=== PATIENT | male | born 1980 | race Two or more races ===

== ENCOUNTER 2024-09-23 23:06 | Emergency (ER) | payer SELFPAY ==
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
[2024-09-23 23:08] VITALS: PULSE 116; RESP 26; O2SAT 97; BMI 22.1
[2024-09-23 23:12] VITALS: BP 166/109; PULSE 127; RESP 26; TEMP 36.4; O2SAT 100
--- NOTE | 2024-09-23 23:14 | XR_ITS ---
Examination: CT brain head without contrast. 2-D sagittal coronal reconstructions Date and time of exam:September 24, 2024 0305 hrs. Indications: Seizure today with injury to head, head pain CTDI: vol (mGy):54.1 DLP: (mGycm):1137 Technique: Multiple CT axial sections of the brain have been obtained, 5 mm slice thickness. Contrast has not been administered. 2-D sagittal, coronal reconstructions have been obtained Low dose protocols were performed. One or more of the following dose reduction techniques were used; automated exposure control, adjustment of the mA and/or KV according to patient size, use of iterative reconstruction technique. Findings: No significant ventricular enlargement. Intra-axial or extra-axial hemorrhage density is not seen. No mass effect or midline shift Basal cisterns are not remarkable. Fourth ventricle is midline. Cranial vault intact. Impression: Negative for acute hemorrhage, mass effect or midline shift
--- NOTE | 2024-09-23 23:14 | XR_ITS ---
Examination: CT lumbar spine, without contrast. 2-D sagittal reconstructions. 2-D coronal reconstructions. 3-D reconstructions. Date and time of exam:September 24, 2024 0315 hrs. Indications: Seizure today with injury to lower back, lower back pain CTDI: vol (mGy):29.3 DLP: (mGycm):930 Technique: Multiple 1.25 mm axial sections of the lumbar spine without intravenous contrast have been obtained. 2-D sagittal and coronal reconstructions have been obtained. 3-D reconstructions have been obtained. Low dose protocols were performed. One or more of the following dose reduction techniques were used; automated exposure control, adjustment of the mA and/or KV according to patient size, use of iterative reconstruction technique. Findings: Satisfactory alignment lumbar vertebral bodies No lumbar vertebral body fracture Lumbar pedicles, laminae, transverse and posterior spinous processes intact 7 mm sclerotic focus in the left first sacral segment No focal lumbar disc protrusion Impression: No acute lumbar fracture
--- NOTE | 2024-09-23 23:14 | XR_ITS ---
Examination: CT chest, without intravenous contrast. CT abdomen, without intravenous contrast. CT pelvis, without intravenous contrast. 2-D sagittal and coronal reconstructions. 3-D reconstructions. Date and time of exam:September 24, 2024 0313 hrs. Indications: Seizure today with injury to the chest and abdomen, chest pain abdomen pain CTDI vol (mgy) 8.66 DLP (MGycm)680 Technique: Multiple CT images, 3.0 mm slice thickness, obtained chest, abdomen, pelvis, with the high-resolution 64 slice scanner.. Sagittal and coronal 2-D reconstructions are obtained. 3-D reconstructions Low dose protocols were performed. One or more of the following dose reduction techniques were used; automated exposure control, adjustment of the mA and/or KV according to patient size, use of iterative reconstruction technique. Findings: Lack of intravenous contrast significantly limits assessment for chest abdomen pelvis trauma Thoracic aorta pulmonary arteries intact No hemopericardium, pneumothorax pulmonary contusion or hemothorax No liver splenic or renal laceration Abdominal aorta intact No free blood in the abdomen or pelvis Normal appendix Osseous structures appear intact Impression: No visceral or bony injury to the chest abdomen or pelvis on this limited noncontrast study
--- NOTE | 2024-09-23 23:14 | XR_ITS ---
Examination: CT thoracic spine without contrast. 2-D sagittal reconstructions. 2-D coronal reconstructions. 3-D reconstructions. Date and time of exam: September 24, 2024 at 0316 hrs. Indications: Seizure today with injury to the back, mid back pain CTDI: vol (mGy):31.4 DLP: (mGycm):1057 Technique: Multiple 1.25 mm axial sections of the thoracic spine without intravenous contrast have been obtained. 2-D sagittal and coronal reconstructions have been obtained. 3-D reconstructions have been obtained. Low dose protocols were performed. One or more of the following dose reduction techniques were used; automated exposure control, adjustment of the mA and/or KV according to patient size, use of iterative reconstruction technique. Findings: Satisfactory alignment thoracic vertebral bodies on the lateral view No thoracic vertebral body compression fracture Thoracic pedicles, laminae, transverse and posterior spinous processes intact No focal thoracic disc protrusions Impression: No acute thoracic fracture
--- NOTE | 2024-09-23 23:14 | XR_ITS ---
Examination: CT cervical spine without contrast 2-D sagittal reconstructions 2-D coronal reconstructions 3-D reconstructions. Exam date and time:September 24, 2024 0305 hrs. Indications: Seizure today, with injury to the neck, neck pain CTDI:vol (mGy) 14 DLP: (mGycm) 318 Technique: Multiple 2 mm axial sections of the cervical spine have been obtained. The coronal and sagittal reconstructions have been obtained. 3-D reconstructions have been obtained. Low dose protocols were performed. One or more of the following dose reduction techniques were used; automated exposure control, adjustment of the mA and/or KV according to patient size, use of iterative reconstruction technique. Findings: Axial sections demonstrate intact base of the skull. C1 exhibit satisfactory relationship to the odontoid. No acute cervical vertebral body fracture seen. Alignment posterior spinous processes satisfactory. Impression: No acute cervical fracture.
--- NOTE | 2024-09-23 23:14 | XR_ITS ---
Examination: CT maxillofacial, without intravenous contrast. 2-D sagittal reconstructions. 3-D reconstructions. Date and time of exam:September 24, 2024 0305 hrs. Indications: Seizure today with injury to the face, facial pain CTDI: vol (mGy):29.4 DLP: (mGycm):565 Technique: Multiple axial images of maxillofacial region, 3.0 mm slice thickness. 2-D sagittal and coronal reconstructions. 3-D reconstructions. Low dose protocols were performed. One or more of the following dose reduction techniques were used; automated exposure control, adjustment of the mA and/or KV according to patient size, use of iterative reconstruction technique. Findings: Mandible maxilla intact including pterygoid plates Old appearing left nasal bone fracture but clinical correlation advised No depression zygomatic arches Orbital rims are intact Frontal bone intact Impression: No acute facial fracture.
[2024-09-23 23:31] LABS: Collection Type, Urine Clean Catch
[2024-09-23 23:36] LABS: Basophils # (Auto) 0.1 Thou/mm3 (0.0-0.2); Basophils % (Auto) 0 % (0-2.5); Eosinophils # (Auto) 0.4 Thou/mm3 (0.0-0.5); Eosinophils % (Auto) 4 % (0-10); Hematocrit 41.5 % (41.0-53.0); Hemoglobin 14.4 g/dL (13.5-16.0); Immature Granulocytes % (Auto) 0 % (0-0); Immature Granulocytes Auto 0.03 Thou/mm3 (0.00-0.00); Lymphocytes # (Auto) 2.7 Thou/mm3 (1.0-4.8); Lymphocytes % (Auto) 23 % (10-50); Mean Corpuscular HGB Conc 34.7 g/dl (31.0-37.0); Mean Corpuscular Hemoglobin 29.1 pg (25.0-35.0); Mean Corpuscular Volume 84 fL (80-100); Monocytes # (Auto) 0.8 Thou/mm3 (0.0-0.8); Monocytes % (Auto) 7 % (0-12); Neutrophils # (Auto) 7.6 Thou/mm3 (1.8-7.7); Neutrophils % (Auto) 66 % (37-80); Nucleated Red Blood Cell % 0 /100 WBC (0); Platelet Count 352 Thou/mm3 (140-440); RDW Standard Deviation 41.1 fL (35.1-43.9); Red Blood Count 4.95 Miln/mm3 (4.50-5.90); White Blood Count 11.5 Thou/mm3 (3.8-10.6)
[2024-09-23] MEDS: SODIUM CHLORIDE 0.9% 1000 ML 1,000 ML 999 ML IV (23:43)
[2024-09-23] MEDS: ONDANSETRON INJ 2 MG/ML INJ 2 ML 4 MG IV (23:47)
[2024-09-23] MEDS: LORazepam 2 MG/ML VIAL IVP (23:47)
[2024-09-23] MEDS: levETIRAcetam INJ 100 MG/ML VIAL 5ML 2000 MG IVP (23:47)
[2024-09-23] MEDS: DIPHTH,PERTUSS(ACELL),TET VAC 0.5 ML SYR- ADULT IMi (23:48)
[2024-09-23 23:51] LABS: Bilirubin,Urine Negative (Negative); Blood,Urine Negative (Negative); Calcium Oxalate Crystals,Urine 1+; Clarity,Urine Clear (Clear/Hazy); Color,Urine Yellow (Lt Yel-Yel); Culture Indicated,Urine Not Indicated; Glucose, Urine Negative (Negative); Ketones,Urine Trace (Negative); Leukocyte Esterase,Urine Negative (Negative); Nitrite,Urine Negative (Negative); PH,Urine 5.5 (5.0-7.0); Protein,Urine 1+ (Neg - Trace); RBC,Urine 5 /hpf (0-3); Squamous Epithelial Cell,Urine < 1 /hpf (0-5); WBC,Urine 4 /hpf (0-5)
[2024-09-23 23:52] LABS: Sperm,Urine Present
[2024-09-23 23:56] LABS: Partial Thromboplastin Time 23.6 Seconds (22.0-36.0); Prothrombin Time 10.8 Seconds (9.0-12.2)
[2024-09-24] VITALS (7 sets, daily range): BP systolic 119–140; BP diastolic 65–81; PULSE 73–104; RESP 16–18; TEMP 36.2–36.7; O2SAT 96–100
[2024-09-24 00:06] LABS: Alanine Aminotransferase 19 U/L (10-49); Albumin, Serum 4.6 gm/dL (3.5-5.0); Albumin/Globulin Ratio 1.7 (1.2-2.2); Alcohol, Blood Medical < 3.0 mg/dL (0-10.0); Alkaline Phosphatase 96 U/L (46-116); Anion Gap 13 (7-16); Aspartate Amino Transferase 30 U/L (0-34); BUN/Creatinine Ratio 24 Ratio (12-20); Bilirubin,Total 0.3 mg/dL (0.3-1.2); Blood Urea Nitrogen 24 mg/dL (9-23); Calcium 9.5 mg/dL (8.3-10.6); Calcium (Corrected) 9.5 mg/dL (8.5-10.1); Carbon Dioxide 23.2 mMol/L (20.0-31.0); Chloride 106 mMol/L (98-107); Creatine Kinase 319 U/L (34-171); Estimated Creatinine Clearance 90.7 mL/min (>60); Globulin 2.7 gm/dL (2.3-3.5); Glucose 129 mg/dL (74-106); Magnesium 1.9 mg/dL (1.6-2.6); Osmolality,Calculated 289 (275-295); Potassium 4.4 mMol/L (3.4-5.1); Sodium 142 mMol/L (136-145); Total Protein 7.3 gm/dL (5.7-8.2); Troponin I < 0.002 ng/mL (0.0-0.045); eGFR > 60 See Note
[2024-09-24 00:07] LABS: Amphetamine/Methamp Scrn,U Positive (Negative); Barbiturate Screen,Urine Negative (Negative); Benzodiazepines Screen,Urine Positive (Negative); Benzoylecgonine Screen, Ur Negative (Negative); Fentanyl Screen,Urine Negative (Negative); Opiate Screen,Urine Negative (Negative); THC Screen,Urine Positive (Negative)
[2024-09-24 00:21] LABS: Base Excess 1 (-3-3); HCO3 23 mEq/L (20-26); Inspired Oxygen, FIO2 21 %; O2 Saturation 96 % (91-98); PCO2 31 mmHg (32.0-48.0); PO2 87 mmHg (83-108); pH, Arterial 7.48 (7.35-7.45)
[2024-09-24 00:22] LABS: Allen Test Performed/OK; Puncture Site Right Radial
[2024-09-24] MEDS: ceFAZolin/D5W 2 GM IV 2 GM/100 ML BAG IV (00:30)
--- NOTE | 2024-09-24 00:32 | XR_ITS ---
Examination: Humerus 2 views right Technique: Humerus, AP lateral 2 views Date and time of exam: September 24, 2024 0103 hrs. Indications: Patient fell today with injury to the arm, arm pain Findings: No shoulder fracture or dislocation Shaft of the humerus intact Impression: No acute fracture
--- NOTE | 2024-09-24 00:32 | XR_ITS ---
Examination: Hand, right 2 views Technique: Hand AP, lateral 2 views Date and time of exam: September 24, 2024 0103 hrs. Indications: Injured the hand today, hand pain Findings: No acute fracture. No dislocation Impression: No acute fracture
--- NOTE | 2024-09-24 00:32 | XR_ITS ---
Examination: Forearm, right, 2 views. Technique: Forearm, AP, lateral 2 views Date and time of exam: September 24, 2024 0103 hrs. Indications: Injury to the forearm today, forearm pain. Findings: No acute fracture No dislocation No foreign body Impression: No acute fracture
--- NOTE | 2024-09-24 00:42 | PC.CC ---
Magui SUAZO arranged transportation for CT with [facility] for 1400.
[2024-09-24] MEDS: KETOROLAC INJ 30 MG/ML VIAL IVP (03:45)
[2024-09-24] MEDS: SODIUM CHLORIDE 0.9% 1000 ML 1,000 ML 999 ML IV (03:46)
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
--- NOTE | 2024-09-24 04:56 | PRELIM_ITS ---
CT maxillofacial without intravenous contrast (axial sections with sagittal and coronal reformats). September 24, 2024 0305 hours Clinical History: Trauma Radiation Dose: Total exam DLP 2030 mGy/cm Comparison: No prior study is available for comparison. Findings: There is no acute fracture. The maxillary sinus and orbital cormier are intact. No fluid levels are seen. No evidence of intraorbital hematoma, proptosis, globe injury or radiodense foreign body. The zygomatic arches and mandible are intact. The visualized soft tissues are unremarkable.There is an age indeterminate bilateral nasal bone fracture. Impression: No acute maxillofacial fracture. Report Electronically Signed By: Scott Mckinley 09/24/2024 4:56:37 AM [EST]
--- NOTE | 2024-09-24 05:00 | PRELIM_ITS ---
CT scan of the head without intravenous contrast (axial sections with sagittal and coronal reformats). September 24, 2024 0305 hours Clinical History: Seizure Comparison: No prior study is available for comparison. Findings: No evidence of intracranial hemorrhage, mass effect or midline shift. The ventricles and CSF spaces are unremarkable. The calvarium is unremarkable. The mastoid air cells and the visualized paranasal sinuses are clear. Impression: No evidence of intracranial hemorrhage, mass effect or midline shift. Report Electronically Signed By: Scott Mckinley 09/24/2024 5:00:14 AM [EST]
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
--- NOTE | 2024-09-24 05:10 | PRELIM_ITS ---
CT scan of the chest, abdomen and pelvis without intravenous contrast (axial sections with sagittal and coronal reformats) September 24, 2024 0313 hours Clinical History: Fall Radiation Dose: Total exam DLP 681 mGy/cm Comparison: No prior study is available for comparison. Findings: The evaluation is slightly limited due to motion artifact. Bibasilar dependent atelectasis is present. There is no pleural effusion or pneumothorax. The aorta is unremarkable on this noncontrast study. There is no mediastinal collection. There is no pericardial effusion. The liver, gallbladder, spleen, pancreas, adrenals and kidneys are unremarkable on this noncontrast study. The bowel is unremarkable. A moderate amount of fecal material is present in the colon. The urinary bladder is unremarkable. There is no free fluid or free air. No fracture is identified.chronic deformity of superior pubic ramus left Impression: No visceral or bony injury to the chest, abdomen or pelvis. Report Electronically Signed By: Scott Mckinley 09/24/2024 5:09:48 AM [EST]
--- NOTE | 2024-09-24 05:10 | PRELIM_ITS ---
CT scan of the lumbar spine without intravenous contrast (axial sections with sagittal and coronal reformats) September 24, 2024 0316 hours Clinical History: Trauma Radiation Dose: Total exam DLP 1893 mGy/cm Comparison: No prior study is available for comparison. Findings: There is no acute fracture or traumatic subluxation. The vertebral body height and intervertebral disc spaces are normal. The soft tissues are unremarkable. Impression: No evidence of acute fracture, traumatic subluxation or significant soft tissue injury. Report Electronically Signed By: Scott Mckinley 09/24/2024 5:09:53 AM [EST]
--- NOTE | 2024-09-24 06:01 | EDNOTE_ITS ---
Emergency Room Addendum Addendum Narrative: 0600: Care assumed from Dr. Sahu, the previous shift emergency physician. Past medical, surgical, social and family history reviewed. Vitals and home medications reviewed. I will assume the care of the patient at this time, pending on x-ray reports and final disposition. Please refer to the emergency department record for history and examination from initial visit.? Physical exam by me shows patient under no acute distress at this time. 0925: Patient remains clinically stable throughout the emergency department visit. Re-assessment at the time of disposition demonstrates that the patient is in no acute distress. We reviewed all the results, analysis, and treatment plans. Patient is amenable to discharge. Strict return precautions were outlined. Patient was discharged in stable condition. Diagnoses: -Trauma -Multiple abrasions -Witnessed seizure-like activity -Methamphetamine abuse RADIOLOGY Procedure(s): XR humerus RT min 2V Accession Number(s): [id number] cc: Akhil Sahu MD; Cory Batres MD; NO PRIMARY/FAMILY,PHYSICIAN~ Examination: Humerus 2 views right Technique: Humerus, AP lateral 2 views Date and time of exam: September 24, 2024 0103 hrs. Indications: Patient fell today with injury to the arm, arm pain Findings: No shoulder fracture or dislocation Shaft of the humerus intact Impression: No acute fracture Dictated By: Cory Batres MD Procedure(s): XR hand RT 2V Accession Number(s): [id number] cc: Akhil Sahu MD; Cory Batres MD; NO PRIMARY/FAMILY,PHYSICIAN~ Examination: Hand, right 2 views Technique: Hand AP, lateral 2 views Date and time of exam: September 24, 2024 0103 hrs. Indications: Injured the hand today, hand pain Findings: No acute fracture. No dislocation Impression: No acute fracture Dictated By: Cory Batres MD Procedure(s): XR forearm RT 2V Accession Number(s): [id number] cc: Akhil Sahu MD; Cory Batres MD; NO PRIMARY/FAMILY,PHYSICIAN~ Examination: Forearm, right, 2 views. Technique: Forearm, AP, lateral 2 views Date and time of exam: September 24, 2024 0103 hrs. Indications: Injury to the forearm today, forearm pain. Findings: No acute fracture No dislocation No foreign body Impression: No acute fracture Dictated By: Cory Batres MD
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
--- NOTE | 2024-09-24 09:31 | PC.NURSE ---
Patient able to eat a sandwich, water and juice without difficulty. Ok to give results to patient per Ai Church, patient made aware of all lab and xray results.
== END 2024-09-24 11:02 | disposition home or self-care (01) ==
PROVIDERS: Emergency Medicine; Emergency Provider Emergency Medicine
DX: R56.9 Unspecified convulsions (principal); F15.10 Other stimulant abuse, uncomplicated; M79.631 Pain in right forearm; S00.81XA Abrasion of other part of head, initial encounter; X58.XXXA Exposure to other specified factors, initial encounter; R07.9 Chest pain, unspecified; M54.9 Dorsalgia, unspecified; Z23 Encounter for immunization
CPT/HCPCS: 51701; 36415; 36600; 70450; 70486; 71250; 72125; 72128; 72131; 73060; 73090; 73120; 74176; 80053; 80307; 80320; 81001; 82550; 82803; 83735; 84484; 85025; 85610; 85730; 90471; 90715; 93005; 96361; 96365; 96375; 99284; J0689; J1885; J1953; J2060; J2405; J7030; G0480

== ENCOUNTER 2024-11-08 09:57 | Emergency (ER) | payer SELFPAY ==
[2024-11-08 09:18] VITALS: PULSE 96; RESP 16; O2SAT 99
[2024-11-08 09:25] VITALS: BMI 21.2
[2024-11-08 09:29] VITALS: BP 126/80; PULSE 95; RESP 22; TEMP 37; O2SAT 95
--- NOTE | 2024-11-08 09:30 | XR_ITS ---
Examination: CT cervical spine without contrast 2-D sagittal reconstructions 2-D coronal reconstructions 3-D reconstructions. Exam date and time:November 08, 2024 1007 hours Seizures today, altered mental status, neck pain CTDI:vol (mGy) 9.27 DLP: (mGycm) 222 Technique: Multiple 2 mm axial sections of the cervical spine have been obtained. The coronal and sagittal reconstructions have been obtained. 3-D reconstructions have been obtained. Low dose protocols were performed. One or more of the following dose reduction techniques were used; automated exposure control, adjustment of the mA and/or KV according to patient size, use of iterative reconstruction technique. Findings: Axial sections demonstrate intact base of the skull. C1 exhibit satisfactory relationship to the odontoid. No acute cervical vertebral body fracture seen. Alignment posterior spinous processes satisfactory. Impression: No acute cervical fracture.
[2024-11-08 09:31] VITALS: PULSE 92
--- NOTE | 2024-11-08 09:31 | EKG_ITS ---
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
[2024-11-08] MEDS: levETIRAcetam INJ 100 MG/ML VIAL 5ML 1000 MG IVP (09:40)
[2024-11-08] MEDS: SODIUM CHLORIDE 0.9% 1000 ML 1,000 ML IV (09:40)
[2024-11-08] MEDS: LORazepam 2 MG/ML VIAL 1 MG IVP (09:45)
[2024-11-08 09:47] LABS: Collection Type, Urine Clean Catch; Squamous Epithelial Cell,Urine 0 /hpf (0-5)
[2024-11-08 09:49] LABS: Basophils % (Auto) 0 % (0-2.5); Eosinophils # (Auto) 0.2 Thou/mm3 (0.0-0.5); Eosinophils % (Auto) 2 % (0-10); Hemoglobin 13.2 g/dL (13.5-16.0); Immature Granulocytes % (Auto) 0 % (0-0); Immature Granulocytes Auto 0.03 Thou/mm3 (0.00-0.00); Lymphocytes # (Auto) 2.2 Thou/mm3 (1.0-4.8); Lymphocytes % (Auto) 21 % (10-50); Mean Corpuscular HGB Conc 35.7 g/dl (31.0-37.0); Mean Corpuscular Hemoglobin 29.3 pg (25.0-35.0); Mean Corpuscular Volume 82 fL (80-100); Monocytes # (Auto) 0.7 Thou/mm3 (0.0-0.8); Monocytes % (Auto) 6 % (0-12); Neutrophils # (Auto) 7.4 Thou/mm3 (1.8-7.7); Neutrophils % (Auto) 70 % (37-80); Nucleated Red Blood Cell % 0 /100 WBC (0); Platelet Count 268 Thou/mm3 (140-440); RDW Standard Deviation 38.6 fL (35.1-43.9); White Blood Count 10.6 Thou/mm3 (3.8-10.6)
[2024-11-08 09:55] LABS: Bilirubin,Urine Negative (Negative); Blood,Urine Negative (Negative); Clarity,Urine Clear (Clear/Hazy); Color,Urine Yellow (Lt Yel-Yel); Glucose, Urine Negative (Negative); Ketones,Urine Negative (Negative); Leukocyte Esterase,Urine Negative (Negative); Nitrite,Urine Negative (Negative); PH,Urine 5.5 (5.0-7.0); Protein,Urine Trace (Neg - Trace); RBC,Urine 3 /hpf (0-3); Specific Gravity,Urine 1.035 (1.001-1.035); Urobilinogen,Urine Negative mg/dL (0.0-1.0); WBC,Urine 2 /hpf (0-5)
[2024-11-08 09:57] LABS: Inspired Oxygen, FIO2 21 %
[2024-11-08 09:58] LABS: Base Excess -1 (-3-3); HCO3 24 mEq/L (20-26); O2 Saturation 97 % (91-98); PCO2 42 mmHg (32.0-48.0); PO2 116 mmHg (83-108); pH, Arterial 7.37 (7.35-7.45)
[2024-11-08 09:59] LABS: Allen Test Not Performed; Puncture Site Right Radial
[2024-11-08 10:00] LABS: Amphetamine/Methamp Scrn,U Positive (Negative); Barbiturate Screen,Urine Negative (Negative); Benzodiazepines Screen,Urine Negative (Negative); Benzoylecgonine Screen, Ur Negative (Negative); Fentanyl Screen,Urine Negative (Negative); Opiate Screen,Urine Negative (Negative); THC Screen,Urine Positive (Negative)
[2024-11-08 10:06] LABS: Prothrombin Time 11.4 Seconds (9.0-12.2)
[2024-11-08 10:09] LABS: Acetaminophen < 2.0 mcg/mL (10.0-20.0); Alanine Aminotransferase 16 U/L (10-49); Albumin/Globulin Ratio 1.7 (1.2-2.2); Alcohol, Blood Medical < 3.0 mg/dL (0-10.0); Alkaline Phosphatase 79 U/L (46-116); Anion Gap 11 (7-16); Aspartate Amino Transferase 20 U/L (0-34); BUN/Creatinine Ratio 19 Ratio (12-20); Bilirubin,Total 0.4 mg/dL (0.3-1.2); Blood Urea Nitrogen 17 mg/dL (9-23); Calcium 8.3 mg/dL (8.3-10.6); Calcium (Corrected) 8.3 mg/dL (8.5-10.1); Carbon Dioxide 23.7 mMol/L (20.0-31.0); Chloride 107 mMol/L (98-107); Creatinine (Component) 0.9 mg/dL (0.6-1.3); Estimated Creatinine Clearance 94.1 mL/min (>60); Globulin 2.4 gm/dL (2.3-3.5); Glucose 167 mg/dL (74-106); Magnesium 1.7 mg/dL (1.6-2.6); Osmolality,Calculated 288 (275-295); Potassium 3.4 mMol/L (3.4-5.1); Salicylate < 3.0 mg/dL; Sodium 142 mMol/L (136-145); Total Protein 6.4 gm/dL (5.7-8.2); Troponin I < 0.002 ng/mL (0.0-0.045); eGFR > 60 See Note
[2024-11-08 12:06] VITALS: BP 113/69; PULSE 81; RESP 19; TEMP 36.6; O2SAT 96
[2024-11-08 14:18] VITALS: BP 116/66; PULSE 81; RESP 20; TEMP 36.7; O2SAT 95
== END 2024-11-08 16:03 | disposition home or self-care (01) ==
PROVIDERS: Emergency Provider Family Medicine
DX: F15.10 Other stimulant abuse, uncomplicated (principal); R41.82 Altered mental status, unspecified; R94.31 Abnormal electrocardiogram [ECG] [EKG]; M54.2 Cervicalgia; R56.9 Unspecified convulsions
CPT/HCPCS: 36415; 36600; 70450; 72125; 80053; 80307; 80320; 80329; 81001; 82803; 83735; 84484; 85025; 85610; 85730; 87040; 93005; 96361; 96365; 96374; 99284; J1953; J2060; J7030; G0480

== ENCOUNTER 2024-11-11 14:35 | Emergency (ER) | payer SELFPAY ==
[2024-11-11 14:35] VITALS: BMI 20.7
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
--- NOTE | 2024-11-11 14:59 | PD.EDADULT ---
ED General RME/HPI General Chief complaint: Medical Clearance Stated complaint: MEDICAL CLEARANCE Time Seen by Provider: 11/11/24 15:21 Arrival date/time: 11/11/24 14:35 Limitations: no limitations RME / HPI RME / HPI narrative: DR. RIZO MAIN ED EVALUATION: 43 year old male presents to the Emergency Department brought in by police as a medical clearance for feeling anxious for a month; he told the police he was getting an aura of a seizure. Patient also complaints of a small thing on his butt, it is a buttocks small healing abscess that has some scabbing and mild erythema. No other symptoms reported at this time. He was seen here on 11/08 and tested positive for methamphetamine and marijuana. Related Data Previous Rx's ?Medication ?Instructions ?Recorded cephalexin 500 mg capsule 500 mg PO Q6H 10 days #40 caps 11/11/24 Allergies Allergy/AdvReac Type Severity Reaction Status Date / Time No Known Allergies Allergy Unverified 11/11/24 14:50 Review of Systems Review of Systems Systems Reviewed: All systems reviewed, normal except as documented Past Medical History Social History SMOKING STATUS: Unknown if ever smoked SUBSTANCE USE: marijuana and methamphetamine ALCOHOL: Never ED Exam General Limitations: Present no limitations General appearance: Present alert, anxious and other (slightly agitated as well; slight pressured speech) Head Head exam: Present atraumatic, normocephalic and normal inspection Eye Eye exam: Present normal appearance, PERRL and EOMI ENT ENT exam: Present normal exam, normal oropharynx and mucous membranes moist Neck Neck exam: Present normal inspection, full ROM and trachea midline Chest Chest inspection: Present normal inspection and symmetric chest wall rise Respiratory Respiratory exam: Present normal lung sounds bilaterally Cardiovascular Cardiovascular exam: Present regular rate, normal rhythm and normal heart sounds Abdominal Exam Abdominal exam: Present soft and normal bowel sounds Extremities Exam Extremities exam: Present normal inspection and full ROM Back Exam Back exam: Present normal inspection and full ROM Neurological Exam Neurological exam: Present alert, oriented X3 and CN II-XII intact Psychiatric Psychiatric exam: Present normal affect and normal mood Skin Skin exam: Present warm, dry, intact and other (buttocks small healing abscess that has some scabbing and mild erythema) Course Quality Measures none Vital Signs Vital signs: Vital Signs Temperature 98.4 F 11/11/24 15:16 Pulse Rate 95 11/11/24 15:16 Respiratory Rate 16 11/11/24 15:16 Blood Pressure 132/81 H 11/11/24 15:16 Pulse Oximetry (%) 98 11/11/24 15:16 Oxygen Delivery Method Room Air 11/11/24 15:16 Discharge Plan Plan Patient Disposition: Detention/Court/Law Patient condition on transfer: Stable Prescriptions/Referrals Prescriptions/Med Rec: New cephalexin 500 mg capsule 500 mg PO Q6H 10 Days Qty: 40 0RF Problem List Clinical Impression: Medical clearance for incarceration, Methamphetamine abuse, Marijuana abuse Patient/Caregiver Discharge Instructions Education Materials: Understanding Methamphetamine ..., ED Drug Abuse, ED Marijuana Abuse Print Language: Portuguese MDM Narrative MDM hospital course: I, Saige Hardin am scribing for and in the presence of Dr. Rizo. He was seen here on 11/08 and tested positive for methamphetamine and marijuana. Clinical Information Provided by patient and law enforcement Medical Records Reviewed Detention Meds/Rx Considered, not Ordered None Labs/Rad/Tests considered, not Ordered None Chronic Illness/Social Conditions which may negatively complicate care or outcome(s)-explain: None or not applicable Lab Interpretation Labs: none Imaging Imaging interpretation: none Medication Administration(s) none Diagnosis Differential diagnosis: Medical clearance for incarceration, Methamphetamine abuse, Marijuana abuse Most likely dx, and/or detailed dx discussion: Medical clearance for incarceration Methamphetamine abuse Marijuana abuse Dispositon Disposition: Incarceration/CPS
[2024-11-11 15:16] VITALS: BP 132/81; PULSE 95; RESP 16; TEMP 36.9; O2SAT 98
--- NOTE | 2024-11-11 15:29 | PC.NURSE ---
Patient brought in by [facility] for medical fpc clearance. Patient c/o pain to boil on L buttocks. Dr. Rizo at bedside assessing patient and updating on POC.
[2024-11-11 15:48] VITALS: BP 132/81; PULSE 93; RESP 16; TEMP 36.7; O2SAT 98
== END 2024-11-11 15:48 ==
LOC: SERX 15:48
PROVIDERS: Emergency Provider Family Medicine
DX: Z02.89 Encounter for other administrative examinations (principal); F15.10 Other stimulant abuse, uncomplicated; F12.10 Cannabis abuse, uncomplicated
CPT/HCPCS: 99281

== ENCOUNTER 2024-12-31 21:00 | Emergency (ER) | payer MEDICAID, SELFPAY ==
[2024-12-31 21:50] VITALS: BP 134/80; PULSE 89; RESP 18; TEMP 36.6; O2SAT 97
--- NOTE | 2024-12-31 21:57 | PD.EDSKIN ---
ED Skin Abcess FB-RME/HPI General Chief complaint: Extremity Injury, Lower Stated complaint: RIGHT KNEE PAIN Time Seen by Provider: 12/31/24 21:17 Arrival date/time: 12/31/24 21:00 This is a case of 44-year-old male came in in the emergency room due to redness pain and swelling on the right knee secondary to insect bite history of present illness started 1 week prior to arrival in the emergency room when the patient had insect bite on the right anterior knee patient did not sought consult until today noted mild swelling and redness on the area of the insect bite with discharge thus decided to sought consult here in the emergency room tetanus shot is up-to-date Limitations: no limitations Related Data Previous Rx's ?Medication ?Instructions ?Recorded clindamycin HCl 300 mg capsule 300 mg PO Q6H 10 days #40 caps 12/31/24 doxycycline monohydrate 100 mg 100 mg PO BID 10 days #20 caps 12/31/24 capsule ibuprofen 600 mg tablet 600 mg PO Q6H PRN pain #20 tabs 12/31/24 mupirocin 2 % topical ointment 1 applic topical BID #22 grams 12/31/24 Allergies Allergy/AdvReac Type Severity Reaction Status Date / Time No Known Allergies Allergy Verified 12/31/24 21:07 Review of Systems Review of Systems Systems Reviewed: All systems reviewed, normal except as documented Constitutional Constitutional: Reports system reviewed and no additional complaints, except as documented and Reports as per HPI Cardiovascular Cardiovascular: Reports system reviewed and no additional complaints, except as documented, Reports as per HPI, Denies chest pain and Denies dyspnea Respiratory Respiratory: Reports system reviewed and no additional complaints, except as documented, Reports as per HPI, Denies cough and Denies dyspnea Musculoskeletal Musculoskeletal: Reports system reviewed and no additional complaints, except as documented and Reports other (Right knee pain) Integumentary/Breasts Skin/Breast: Reports other (Insect bite redness) Neurologic Neurologic: Reports system reviewed and no additional complaints, except as documented and Reports as per HPI Past Medical History Past Medical History PSYCHO/SOCIAL: Positive Psychiatric Problems, Recreational Drug Use, Anxiety and Behavior Problems Social History SMOKING STATUS: Unknown if ever smoked SUBSTANCE USE: marijuana and methamphetamine ED Exam General Limitations: Present no limitations General appearance: Present alert, in no apparent distress and other (Patient is awake alert oriented not in distress nontoxic looking well-hydrated well-nourished) Head Head exam: Present atraumatic, normocephalic and normal inspection Eye Eye exam: Present normal appearance, PERRL and EOMI ENT ENT exam: Present normal exam, normal oropharynx and mucous membranes moist Neck Neck exam: Present normal inspection, full ROM and trachea midline; Absent tenderness, meningismus, lymphadenopathy or thyromegaly Chest Chest inspection: Present normal inspection and symmetric chest wall rise; Absent tenderness Respiratory Respiratory exam: Present normal lung sounds bilaterally; Absent respiratory distress, wheezes, stridor, accessory muscle use or prolonged expiratory phase Cardiovascular Cardiovascular exam: Present regular rate, normal rhythm and normal heart sounds; Absent bradycardia, tachycardia, irregular rhythm, systolic murmur or diastolic murmur Abdominal Exam Abdominal exam: Present soft and normal bowel sounds; Absent distention, tenderness, guarding, rebound, rigidity, diminished bowel sounds, hyperactive bowel sounds or hypoactive bowel sounds Extremities Exam Extremities exam: Present normal inspection and full ROM Expanded Lower Extremity Exam Knee exam: Present full ROM, tenderness (Moderate tenderness on palpation on the right anterior knee), swelling (Mild swelling), erythema (Redness approximately 3 x 3 cm around the insect bite) and other (Pulses were full and equal capillary refill less than 2 seconds sensory motor reflex were normal no calf tenderness negative tension signs negative Homans' sign); Absent abrasion, laceration, ecchymosis, deformity, crepitus, dislocation, effusion, anterior drawer sign, posterior draw sign, pain with valgus, laxity with valgus, pain with varus, laxity with varus or knee extension intact Back Exam Back exam: Present normal inspection and full ROM Neurological Exam Neurological exam: Present alert, oriented X3, CN II-XII intact, normal gait and reflexes normal; Absent motor sensory deficit Psychiatric Psychiatric exam: Present normal affect and normal mood Skin Skin exam: Present warm, dry, intact, normal color and other (Noted a 3 x 3 cm cellulitis redness on the right anterior knee on the area of the insect bite with mild tenderness no abscess no fluctuance not indurated) Course Quality Measures none Orders Category Date Time Status Clindamycin Vial [Cleocin vial] Med 12/31/24 21:53 Once 600 mg IM X1 ONE HYDROcodone*/APAP 5/325 [[place] 5/325] Med 12/31/24 21:53 Once 1 tab PO X1 ONE Vital Signs Vital signs: Vital Signs Temperature 98 F 12/31/24 21:50 Pulse Rate 89 12/31/24 21:50 Respiratory Rate 18 12/31/24 21:50 Blood Pressure 134/80 H 12/31/24 21:50 Pulse Oximetry (%) 97 12/31/24 21:50 Oxygen Delivery Method Room Air 12/31/24 21:50 Patient is afebrile not tachycardic not tachypneic BP stable not hypoxic oxygen saturation is 97% in room air Skin / Abscess / Foreign Body MDM Narrative MDM Narrative:: This is a case of 44-year-old male came in in the emergency room due to redness pain and swelling on the right knee secondary to insect bite history of present illness started 1 week prior to arrival in the emergency room when the patient had insect bite on the right anterior knee patient did not sought consult until today noted mild swelling and redness on the area of the insect bite with discharge thus decided to sought consult here in the emergency room tetanus shot is up-to-date physical examination patient is awake alert oriented not in distress nontoxic looking well-hydrated well-nourished noted a 3 x 3 cm redness swelling on the anterior right knee no fluctuance not indurated not abscess with streak redness suggestive of cellulitis secondary to insect bite patient was given clindamycin IM here in the emergency room and discharged with clindamycin and doxycycline patient was also given [place] for pain and prescribed ibuprofen for pain ROM intact neurovascular intact no calf tenderness negative Gray signs negative Homans' sign overall patient condition is stable and can be discharged home stable condition patient was advised to return in the emergency room in 2 days for evaluation of the cellulitis patient will follow-up with PCP in 2 days for reevaluation worsening symptoms or any emergent concern he will return to the emergency room immediately or call [phone] Patient data External records reviewed:: [facility] previous records Clinical information provided by:: patient Social determinants that could affect healthcare access:: none Patient has the following chronic illnesses:: None How is presenting disease/condition affected by chronic disease/condition?: no chronic disease Evaluation data The following diagnostics were reviewed and interpreted by me:: other (specify) Lab and/or radiology exams considered but not ordered:: None Interpretation Summary: None Medications / Prescriptions Medications or Prescriptions considered but not ordered:: Given Medication administrations:: Medication Administration History Hydrocodone Bitart/Acetaminophen (Hydrocodone/Apap 5/325 Tablet) 1 tab PO X1 ONE Stop: 12/31/24 21:54 Clindamycin Phosphate (Clindamycin Phos Inj 150 Mg/Ml Vial 6 Ml) 600 mg IM X1 ONE Stop: 12/31/24 21:54 Given Consultations Consultation(s) initiated? (list below): No Diagnosis Skin/Abscess Differential Diagnosis: abscess of skin or subcutaneous tissue, cellulitis and insect bites Most likely diagnosis given after review of the tests above:: Cellulitis Admission Indicated Admission indicated?: not indicated Explain why admission is indicated or not indicated:: Not indicated Admission Request Was there a request for admission?: No Disposition Plan Disposition Plan: Discharge Discharge Attestation Discharge Attestation: The patient and all family members were given an opportunity to ask questions and understood the discharge instructions. Discharge instructions specifically effects, indications for sooner follow up or return to the emergency department, and the expected course of current diagnosis. Patient condition: Stable Discharge Plan Plan Patient Disposition: HOME (Self Care) Patient condition on transfer: Stable Prescriptions/Referrals Prescriptions/Med Rec: New clindamycin HCl 300 mg capsule 300 mg PO Q6H 10 Days Qty: 40 0RF doxycycline monohydrate 100 mg capsule 100 mg PO BID 10 Days Qty: 20 0RF mupirocin 2 % ointment 1 applic topical BID Qty: 22 0RF ibuprofen 600 mg tablet 600 mg PO Q6H PRN (Reason: pain) Qty: 20 0RF Problem List Clinical Impression: Cellulitis of knee, right, Infected insect bite Patient/Caregiver Discharge Instructions Education Materials: Discharge Instructions for Cellulitis, ED Cellulitis, ED Insect Bite Additional Instructions: Follow-up with your primary care physician in 2 days for reevaluation return in the emergency room in 2 days for evaluation of the cellulitis worsening symptoms or any emergent concern such as redness swelling discharge pain fever chills return to the emergency room immediately or call 911 take your medication as directed finish the course of antibiotic keep the area clean and dry Print Language: Kinyarwanda Stand Alone Forms: Annie Award Info., Patient Portal Info Letter PA/BLACKTOP PAVER OPERATOR Supervising Physician PA/BLACKTOP PAVER OPERATOR Supervising Physician: DR Archer
[2024-12-31] MEDS: HYDROcodone/APAP 5/325 TABLET 1 TAB PO (22:36)
[2024-12-31] MEDS: CLINDAMYCIN PHOS INJ 150 MG/ML VIAL 6 ML 600 MG IM (22:36)
[2024-12-31 23:11] VITALS: RESP 16
== END 2024-12-31 23:12 | disposition home or self-care (01) ==
LOC: SERX 22:04
PROVIDERS: Emergency Provider Emergency Medicine
DX: S80.261A Insect bite (nonvenomous), right knee, initial encounter (principal); L03.115 Cellulitis of right lower limb; W57.XXXA Bitten or stung by nonvenomous insect and other nonvenomous arthropods, initial encounter
CPT/HCPCS: 96372; 99283; J0736; A9270

== ENCOUNTER 2025-01-02 14:47 | Emergency (ER) | payer MEDICAID, SELFPAY ==
[2025-01-02 14:56] VITALS: BP 111/70; PULSE 75; RESP 16; TEMP 36.7; O2SAT 99
[2025-01-02 15:05] VITALS: PULSE 84
--- NOTE | 2025-01-02 15:05 | PC.NURSE ---
per medic, pt picked up by fire in [facility]. Upon ems arrival at scene, pt confused
--- NOTE | 2025-01-02 15:09 | EDNOTE_ITS ---
ED Weakness RME/HPI General Chief complaint: Altered Mental Status Stated complaint: ALTERED Time Seen by Provider: 01/02/25 14:54 Arrival date/time: 01/02/25 14:47 Limitations: no limitations RME / HPI RME / HPI Narrative: DR. FINCH MAIN ED EVALUATION: 44 year old male presents to the Emergency Department [facility] after patient was found in [place] appearing altered after walking in the heat, initially reporting chronic chest pain to EMS, which he later denied. Patient presented with unclear complaints, speaking in both Zimbabwean and Jamaican. EMS unable to get precise complaint. Patient did say he was tired. Blood glucose was 93 and vitals were stable per EMS. Patient declined lab work and stated he has no medical history other than schizophrenia, for which he takes trazodone. He denies s uicidal ideation. EMS was not called by the patient, but rather by a bystander. Patient now states he is happy he got a ride to be closer to his grandmother?s house and does not appear distressed. Related Data Previous Rx's ?Medication ?Instructions ?Recorded clindamycin HCl 300 mg capsule 300 mg PO Q6H 10 days # 40 caps 12/31/24 doxycycline monohydrate 100 mg 100 mg PO BID 10 days # 20 caps 12/31/24 capsule ibuprofen 600 mg tablet 600 mg PO Q6H PRN pain #20 t abs 12/31/24 mupirocin 2 % topical ointment 1 applic topical BID #2 2 grams 12/31/24 Allergies Allergy/AdvReac Type Severity Reaction Status Date / Time No Known Allergies Allergy Verified 01/02/25 15:21 Review of Systems Review of Systems Systems Reviewed: All systems reviewed, normal except as documented Past Medical History Past Medical History PSYCHO/SOCIAL: Positive Psychiatric Problems, Recreational Drug Use, Anxiety and Behavior Problems Social History SMOKING STATUS: Current every day smoker SUBSTANCE USE: marijuana and methamphetamine ED Exam General Limitations: Present no limitations General appearance: Present alert and in no apparent distress Head Head exam: Present atraumatic, normocephalic and normal inspection Eye Eye exam: Present normal appearance, PERRL and EOMI ENT ENT exam: Present normal exam, normal oropharynx and mucous membranes moist Neck Neck exam: Present normal inspection, full ROM and trachea midline Chest Chest inspection: Present normal inspection and symmetric chest wall rise Respiratory Respiratory exam: Present normal lung sounds bilaterally Cardiovascular Cardiovascular exam: Present regular rate, normal rhythm and normal heart sounds Abdominal Exam Abdominal exam: Present soft and normal bowel sounds Extremities Exam Extremities exam: Present normal inspection and full ROM Back Exam Back exam: Present normal inspection and full ROM Neurological Exam Neurological exam: Present alert, oriented X3 and CN II-XII intact Psychiatric Psychiatric exam: Present normal affect and normal mood Skin Skin exam: Present warm, dry, intact and normal color Course Quality Measures none Orders Category Date Time Status Private Mortgage Banker Safe NOW Care 01/02/25 15:08 Active Continuous Pulse Oximetry NOW Care 01/02/25 15:08 Completed Insert IV NOW Care 01/02/25 15:08 Active CBC Stat Lab 01/02/25 15:15 Completed Comprehensive Metabolic Panel Stat Lab 01/02/25 15:15 Completed Drug Screen,Urine Stat Lab 01/02/25 16:05 Ordered Sodium Chloride 0.9% 1000 ml [Ns] 1,000 ml Med 01/02/25 15:07 Discontinued IV 999 mls/hr Vital Signs Vital signs: Vital Signs Temperature 98.1 F 01/02/25 14:56 Pulse Rate 75 01/02/25 14:56 Respiratory Rate 16 01/02/25 14:56 Blood Pressure 111/70 01/02/25 14:56 Pulse Oximetry (%) 99 01/02/25 14:56 Oxygen Delivery Method Room Air 01/02/25 14:56 Weakness MDM Narrative MDM Narrative:: Saige Mejia am scribing for and in the presence of Dr. Finch. Patient data External records reviewed:: [facility] previous records and EMS form Clinical information provided by:: patient and EMS Social determinants that could affect healthcare access:: substance use Patient has the following chronic illnesses:: schizophrenia, for which he takes trazodone How is presenting disease/condition affected by chronic disease/condition?: uneffected by Evaluation data The following diagnostics were reviewed and interpreted by me:: lab results Lab and/or radiology exams considered but not ordered:: none Interpretation Summary: No acute findings. Medications / Prescriptions Medications or Prescriptions considered but not ordered:: none Medication administrations:: Medication Administration History Discontinued Medications Sodium Chloride (Ns) 1,000 mls @ 999 mls/hr IV .Q1H1M ONE Stop: 01/02/25 16:07 Last Infusion: 01/02/25 16:36 Dose: Infused Documented By: [email or web address] Admin: 01/02/25 15:35 Dose: 999 mls/hr Documented By: KM see above if any Consultations Consultation(s) initiated? (list below): No Diagnosis Weakness Differential Diagnosis: other (Schizophrenia with disorganized behavior, heat exhaustion, and somatic symptom disorder.) Most likely diagnosis given after review of the tests above:: Chronic schizophrenia Methamphetamine abuse Admission Indicated Admission indicated?: not indicated Admission Request Was there a request for admission?: No Disposition Plan Disposition Plan: Discharge Discharge Attestation Discharge Attestation: The patient and all family members were given an opportunity to ask questions and understood the discharge instructions. Discharge instructions specifically effects, indications for sooner follow up or return to the emergency department, and the expected course of current diagnosis. Patient condition: Stable Discharge Plan Plan Patient Disposition: HOME (Self Care) Patient condition on transfer: Stable Prescriptions/Referrals Prescriptions/Med Rec: No Action clindamycin HCl 300 mg capsule 300 mg PO Q6H 10 Days Qty: 40 0RF doxycycline monohydrate 100 mg capsule 100 mg PO BID 10 Days Qty: 20 0RF mupirocin 2 % ointment 1 applic topical BID Qty: 22 0RF ibuprofen 600 mg tablet 600 mg PO Q6H PRN (Reason: pain) Qty: 20 0RF Referrals: No Primary/Family,Physician [Primary Care Provider] - In 1 week Problem List Clinical Impression: Chronic schizophrenia, Methamphetamine abuse Patient/Caregiver Discharge Instructions Education Materials: ED Drug Abuse, ED Schizophrenia, General Additional Instructions: Please follow-up with your primary care physician within 2-3 days. Return to the Emergency Department as needed. Print Language: Zimbabwean Stand Alone Forms: Annie Award Info., Patient Portal Info Letter
[2025-01-02 15:21] VITALS: PULSE 80; O2SAT 99; BMI 24.3
[2025-01-02 15:35] LABS: Basophils # (Auto) 0.0 Thou/mm3 (0.0-0.2); Basophils % (Auto) 0 % (0-2.5); Eosinophils # (Auto) 0.3 Thou/mm3 (0.0-0.5); Eosinophils % (Auto) 4 % (0-10); Hematocrit 32.4 % (41.0-53.0); Hemoglobin 11.6 g/dL (13.5-16.0); Immature Granulocytes Auto 0.02 Thou/mm3 (0.00-0.00); Lymphocytes # (Auto) 2.0 Thou/mm3 (1.0-4.8); Lymphocytes % (Auto) 20 % (10-50); Mean Corpuscular HGB Conc 35.8 g/dl (31.0-37.0); Mean Corpuscular Hemoglobin 29.4 pg (25.0-35.0); Mean Corpuscular Volume 82 fL (80-100); Monocytes # (Auto) 1.0 Thou/mm3 (0.0-0.8); Monocytes % (Auto) 10 % (0-12); Neutrophils # (Auto) 6.3 Thou/mm3 (1.8-7.7); Neutrophils % (Auto) 65 % (37-80); Nucleated Red Blood Cell # 0.00 Thou/mm3 (0.00-0.00); Nucleated Red Blood Cell % 0 /100 WBC (0); Platelet Count 286 Thou/mm3 (140-440); RDW Standard Deviation 38.7 fL (35.1-43.9); Red Blood Count 3.94 Miln/mm3 (4.50-5.90); White Blood Count 9.6 Thou/mm3 (3.8-10.6)
[2025-01-02] MEDS: SODIUM CHLORIDE 0.9% 1000 ML 1,000 ML 999 ML IV (15:35)
[2025-01-02 15:59] LABS: Alanine Aminotransferase 18 U/L (10-49); Albumin, Serum 4.1 gm/dL (3.5-5.0); Albumin/Globulin Ratio 1.5 (1.2-2.2); Alkaline Phosphatase 72 U/L (46-116); Anion Gap 10 (7-16); Aspartate Amino Transferase 40 U/L (0-34); BUN/Creatinine Ratio 14 Ratio (12-20); Bilirubin,Total 0.3 mg/dL (0.3-1.2); Blood Urea Nitrogen 10 mg/dL (9-23); Calcium 8.7 mg/dL (8.3-10.6); Calcium (Corrected) 8.7 mg/dL (8.5-10.1); Carbon Dioxide 22.3 mMol/L (20.0-31.0); Chloride 108 mMol/L (98-107); Creatinine (Component) 0.7 mg/dL (0.6-1.3); Estimated Creatinine Clearance 128.9 mL/min (>60); Globulin 2.7 gm/dL (2.3-3.5); Glucose 104 mg/dL (74-106); Osmolality,Calculated 278 (275-295); Potassium 3.4 mMol/L (3.4-5.1); Sodium 140 mMol/L (136-145); Total Protein 6.8 gm/dL (5.7-8.2); eGFR > 60 See Note
[2025-01-02 16:12] VITALS: BP 110/69; PULSE 76; RESP 19; TEMP 36.6; O2SAT 98
--- NOTE | 2025-01-02 18:43 | PC.CC ---
Magui SUAZO was consulted by JAVON Pringle regarding transportation for patient back to [facility]. ASW arranged transportation via [facility] for patient.
== END 2025-01-02 18:45 | disposition home or self-care (01) ==
PROVIDERS: Emergency Provider Family Medicine
DX: F20.9 Schizophrenia, unspecified (principal); F15.10 Other stimulant abuse, uncomplicated
CPT/HCPCS: 36415; 80053; 80307; 85025; 96360; 99284; J7030

== ENCOUNTER 2025-01-03 11:21 | Emergency (ER) | payer MEDICAID, SELFPAY ==
[2025-01-03] VITALS (14 sets, daily range): BP systolic 106–137; BP diastolic 66–85; PULSE 70–90; RESP 13–23; TEMP 36.6–36.8; O2SAT 96–100; BMI 25.4; BMI 22.8
--- NOTE | 2025-01-03 12:05 | XR_ITS ---
Examination: AP chest single view Technique : AP portable semiupright chest single view Date and time: January 03, 2025 1240 hours INDICATIONS: Chest pain today. FINDINGS: Normal heart size. Lungs are clear. The osseous structures are intact IMPRESSION: No active disease
[2025-01-03] MEDS: RINGERS LACTATED 1000 ML 1,000 ML 999 ML IV (12:26)
[2025-01-03 12:34] LABS: Basophils # (Auto) 0.0 Thou/mm3 (0.0-0.2); Basophils % (Auto) 0 % (0-2.5); Eosinophils # (Auto) 0.3 Thou/mm3 (0.0-0.5); Eosinophils % (Auto) 4 % (0-10); Hematocrit 31.7 % (41.0-53.0); Hemoglobin 11.3 g/dL (13.5-16.0); Immature Granulocytes Auto 0.01 Thou/mm3 (0.00-0.00); Lymphocytes # (Auto) 1.8 Thou/mm3 (1.0-4.8); Lymphocytes % (Auto) 22 % (10-50); Mean Corpuscular HGB Conc 35.6 g/dl (31.0-37.0); Mean Corpuscular Hemoglobin 29.2 pg (25.0-35.0); Mean Corpuscular Volume 82 fL (80-100); Monocytes # (Auto) 0.6 Thou/mm3 (0.0-0.8); Monocytes % (Auto) 8 % (0-12); Neutrophils # (Auto) 5.1 Thou/mm3 (1.8-7.7); Neutrophils % (Auto) 66 % (37-80); Nucleated Red Blood Cell # 0.00 Thou/mm3 (0.00-0.00); Nucleated Red Blood Cell % 0 /100 WBC (0); Platelet Count 321 Thou/mm3 (140-440); RDW Standard Deviation 38.8 fL (35.1-43.9); Red Blood Count 3.87 Miln/mm3 (4.50-5.90); White Blood Count 7.8 Thou/mm3 (3.8-10.6)
[2025-01-03 12:58] LABS: Partial Thromboplastin Time 28.3 Seconds (22.0-36.0)
[2025-01-03 12:59] LABS: Alanine Aminotransferase 17 U/L (10-49); Albumin, Serum 4.1 gm/dL (3.5-5.0); Albumin/Globulin Ratio 1.5 (1.2-2.2); Alkaline Phosphatase 71 U/L (46-116); Anion Gap 13 (7-16); Aspartate Amino Transferase 33 U/L (0-34); BUN/Creatinine Ratio 10 Ratio (12-20); Bilirubin,Total 0.3 mg/dL (0.3-1.2); Blood Urea Nitrogen 7 mg/dL (9-23); Calcium 8.7 mg/dL (8.3-10.6); Calcium (Corrected) 8.7 mg/dL (8.5-10.1); Carbon Dioxide 23.1 mMol/L (20.0-31.0); Chloride 108 mMol/L (98-107); Creatine Kinase 490 U/L (34-171); Creatinine (Component) 0.7 mg/dL (0.6-1.3); Estimated Creatinine Clearance 132.5 mL/min (>60); Globulin 2.7 gm/dL (2.3-3.5); Glucose 105 mg/dL (74-106); Osmolality,Calculated 284 (275-295); Potassium 3.7 mMol/L (3.4-5.1); Sodium 144 mMol/L (136-145); Total Protein 6.8 gm/dL (5.7-8.2); eGFR > 60 See Note
--- NOTE | 2025-01-03 13:34 | EDNOTE_ITS ---
ED Weakness RME/HPI General Chief complaint: Weakness Stated complaint: WEAKNESS Time Seen by Provider: 01/03/25 11:38 Arrival date/time: 01/03/25 11:21 RME / HPI RME / HPI Narrative: 44-year-old male patient, homeless, chronic schizophrenia, methamphetamine abuse, was brought in by EMS for evaluation regarding generalized body weakness. Apparently patient was picked up on the streets, after found to be lying on the ground. Patient told me that he complains of generalized body weakness. Patient denies any headache denies any chest pain denies any fever denies any vomiting diarrhea. Patient denies any other complaints. Patient is ambulatory according to EMS. Related Data Home Medications ?Medication ?Instructions ?Recorded ?Confirmed No Known Home Medications 01/03/2512/17 Allergies Allergy/AdvReac Type Severity Reaction Status Date / Time No Known Allergies Allergy Verified 01/03/25 13:04 Review of Systems Review of Systems Narrative Review of Systems: Review of system reviewed and within normal limits except mentioned in HPI ED Exam Narrative Physical exam: VITAL SIGNS: Reviewed. GENERAL APPEARANCE: Alert and interactive, follows commands, no acute distress, HEAD AND FACE: Non-traumatic. ENT: PERRL, pink conjunctivitis, eyelid no trauma, Mucous membrane moist. NECK: Supple, nontender, no nuchal rigidity. CHEST: No tenderness, no crepitus, no paradoxical movement, no retractions. LUNGS: Clear, well ventilated, symmetric, no rales, no wheezing, no ronchi, no stridor, good breath sounds bilaterally. HEART: Regular rate, regular rhythm, no murmur, no gallops. ABDOMEN: Soft, positive bowel sounds, nondistended, no guarding, nontender, no rebound, no masses, RECTAL: Deferred. GENITAL: Deferred. NEUROLOGICAL: Gross motor function intact sensory function intact, Appropriate for age. MUSCULOSKELETAL: low back nontender, full range of motion. EXTREMITIES: Nontender, full range of motion. SKIN: Color pink, dry, no rash, no lacerations, no abrasions, no contusions. LYMPHATICS: Deferred. Course Quality Measures none Orders Category Date Time Status XR chest 1V Stat Exams 01/03/25 12:05 Completed CBC Stat Lab 01/03/25 12:24 Completed CK [Creatine Kinase] Stat Lab 01/03/25 12:24 Completed Comprehensive Metabolic Panel Stat Lab 01/03/25 12:24 Completed Partial Thromboplastin Time Stat Lab 01/03/25 12:24 Completed Urinalysis, C/S if Indicated Stat Lab 01/03/25 13:45 Completed Ringers Lactated 1000 ml [Lactated Ringers] 1,000 ml Med 01/03/25 12:07 Discontinued IV 999 mls/hr Vital Signs Vital signs: Vital Signs Temperature 98.3 F 01/03/25 11:22 Pulse Rate 75 01/03/25 11:22 Respiratory Rate 18 01/03/25 11:22 Blood Pressure 114/79 01/03/25 11:22 Pulse Oximetry (%) 98 01/03/25 11:22 Oxygen Delivery Method Room Air 01/03/25 11:22 Weakness MDM Narrative MDM Narrative:: 44-year-old male patient, homeless, chronic schizophrenia, methamphetamine abuse, was brought in by EMS for evaluation regarding generalized body weakness. Apparently patient was picked up on the streets, after found to be lying on the ground. Patient told me that he complains of generalized body weakness. Patient denies any headache denies any chest pain denies any fever denies any vomiting diarrhea. Patient denies any other complaints. Patient is ambulatory according to EMS. Patient's workup today all came back unremarkable. Patient received 1 L of IV fluids. Patient ate lunch in the emergency room. Prior to discharge patient verbalized significant improvement of symptoms. Patient is ambulatory Patient data External records reviewed:: None Clinical information provided by:: patient Social determinants that could affect healthcare access:: substance use Patient has the following chronic illnesses:: None How is presenting disease/condition affected by chronic disease/condition?: no chronic disease Evaluation data The following diagnostics were reviewed and interpreted by me:: lab results, radiology exam(s) and EKG tracing(s) Lab and/or radiology exams considered but not ordered:: None Interpretation Summary: See results MDM Medications / Prescriptions Medications or Prescriptions considered but not ordered:: None Medication administrations:: Medication Administration History Discontinued Medications Lactated Ringer's (Lactated Ringers) 1,000 mls @ 999 mls/hr IV .Q1H1M ONE Stop: 01/03/25 13:07 Last Infusion: 01/03/25 13:00 Dose: Infused Documented By: Admin: 01/03/25 12:26 Dose: 999 mls/hr Documented By: ÁNGEL IV fluids Consultations Consultation(s) initiated? (list below): No Diagnosis Weakness Differential Diagnosis: rhabdomyolysis and dehydration Most likely diagnosis given after review of the tests above:: Dehydration Admission Indicated Admission indicated?: not indicated Explain why admission is indicated or not indicated:: Stable Admission Request Was there a request for admission?: No Disposition Plan Disposition Plan: Discharge Discharge Attestation Discharge Attestation: The patient was given an opportunity to ask questions and understood the discharge instructions. Discharge instructions specifically effects, indications for sooner follow up or return to the emergency department, and the expected course of current diagnosis. Patient condition: Stable Discharge Plan Plan Patient Disposition: HOME (Self Care) Discharge Disposition comment: Stable Prescriptions/Referrals Prescriptions/Med Rec: No Action No Known Home Medications Referrals: No Primary/Family,Physician [Primary Care Provider] - In 1 week Problem List Clinical Impression: Dehydration Patient/Caregiver Discharge Instructions Discharge Activity: activity as tolerated Education Materials: ED Dehydration (Adult) Additional Instructions: Thank you for the opportunity for serving you today. You are stable for discharged . You are advised to: Follow-up with your PCP in 1 to 2 days Return to ED for worsening of symptoms Increase oral fluids Print Language: Montserratian Stand Alone Forms: Annie Award Info., Patient Portal Info Letter LILIANA/MELQUIADES Supervising Physician LILIANA/MELQUIADES Supervising Physician: MD jose
[2025-01-03 13:58] LABS: Collection Type, Urine Clean Catch
[2025-01-03 14:16] LABS: Bacteria,Urine Rare; Bilirubin,Urine Negative (Negative); Blood,Urine Negative (Negative); Clarity,Urine Clear (Clear/Hazy); Color,Urine Yellow (Lt Yel-Yel); Culture Indicated,Urine Not Indicated; Glucose, Urine Negative (Negative); Ketones,Urine 1+ (Negative); Leukocyte Esterase,Urine Negative (Negative); Nitrite,Urine Negative (Negative); PH,Urine 6.0 (5.0-7.0); Protein,Urine Trace (Neg - Trace); RBC,Urine 5 /hpf (0-3); Specific Gravity,Urine 1.034 (1.001-1.035); Squamous Epithelial Cell,Urine < 1 /hpf (0-5); Urobilinogen,Urine 2.0 mg/dL (0.0-1.0); WBC,Urine 1 /hpf (0-5)
== END 2025-01-03 16:30 | disposition home or self-care (01) ==
PROVIDERS: Nurse Practitioner Family; Emergency Provider Family Medicine
DX: E86.0 Dehydration (principal); R07.9 Chest pain, unspecified; Z59.00 Homelessness unspecified
CPT/HCPCS: 36415; 71045; 80053; 81001; 82550; 85025; 85730; 96360; 99283; J7120